=== PATIENT | female | born 1985 | race Caucasian/White ===

== ENCOUNTER → 2017-08-13 14:00 | Outpatient (CLI) | payer MEDICAID, SELFPAY ==
[2017-08-19 09:25] LABS: HPV APTIMA, High Risk Negative (Negative)
== END ==
PROVIDERS: Family Provider Family Medicine; PCP Family Medicine; Visit Provider Obstetrics & Gynecology
DX: Z01.419 Encounter for gynecological examination (general) (routine) without abnormal findings (principal)
CPT/HCPCS: 88175; G0145

== ENCOUNTER → 2017-12-04 09:45 | Outpatient (CLI) | payer MEDICAID, SELFPAY ==
[2017-12-04 11:05] LABS: Estradiol 46.8 pg/mL; Follicle Stimulating Hormone 4.8 mIU/mL; Prolactin 4.6 ng/mL
[2017-12-05 05:07] LABS: DHEA Sulfate 77.1 ug/dL (84.8-378.0)
[2017-12-05 14:01] LABS: Sex Hormone-binding Globulin 47.5 nmol/L (24.6-122.0)
[2017-12-07 17:49] LABS: Free T3 2.6 pg/mL (2.18-3.98); T4 Free Direct 0.93 ng/dL (0.76-1.46)
[2017-12-07 17:55] LABS: Vitamin D,25 Hydroxy 16.6 ng/mL (29.95-100.01)
== END ==
PROVIDERS: Visit Provider Obstetrics & Gynecology
DX: N92.1 Excessive and frequent menstruation with irregular cycle (principal); N93.9 Abnormal uterine and vaginal bleeding, unspecified
CPT/HCPCS: 36415; 82306; 82627; 82670; 83001; 84146; 84270; 84403; 84439; 84443; 84481; 82626

== ENCOUNTER → 2017-12-28 13:38 | Outpatient (CLI) | payer MEDICAID, SELFPAY ==
[2017-12-28 16:05] LABS: Progesterone Level 13.12 ng/mL (See Comment)
== END ==
PROVIDERS: Visit Provider Obstetrics & Gynecology
DX: N92.1 Excessive and frequent menstruation with irregular cycle (principal); N92.6 Irregular menstruation, unspecified
CPT/HCPCS: 36415; 84144